=== PATIENT | female | born 1940 | race Caucasian/White ===

== ENCOUNTER → 2017-12-08 | Outpatient (CLI) | payer OTHER | LOC: M.RAD 12:55 | DX: M47.812 Spondylosis without myelopathy or radiculopathy, cervical region (principal) ==

== ENCOUNTER → 2017-12-21 | Outpatient (CLI) | payer OTHER | LOC: M.CT 13:05 | DX: M47.812 Spondylosis without myelopathy or radiculopathy, cervical region (principal); M48.02 Spinal stenosis, cervical region; G43.109 Migraine with aura, not intractable, without status migrainosus ==

== ENCOUNTER → 2018-03-06 | Outpatient (CLI) | payer OTHER | LOC: M.RAD 02-07 13:08 | DX: Z12.31 Encounter for screening mammogram for malignant neoplasm of breast (principal); I25.10 Atherosclerotic heart disease of native coronary artery without angina pectoris; M85.88 Other specified disorders of bone density and structure, other site ==

== ENCOUNTER → 2019-03-06 | Outpatient (CLI) | payer OTHER | LOC: M.RAD 08:20 | DX: Z12.31 Encounter for screening mammogram for malignant neoplasm of breast (principal) ==

== ENCOUNTER → 2020-03-07 | Outpatient (CLI) | payer OTHER | LOC: M.RAD 09:00 | PROVIDERS: ATTEND Internal Medicine | DX: Z12.31 Encounter for screening mammogram for malignant neoplasm of breast (principal) ==

== ENCOUNTER → 2021-03-10 | Outpatient (CLI) | payer OTHER | LOC: M.RAD 09:07 | PROVIDERS: ATTEND Family Medicine | DX: Z12.31 Encounter for screening mammogram for malignant neoplasm of breast (principal) ==

== ENCOUNTER 2021-06-12 13:22 | Emergency (ER) | payer OTHER ==
[~2021-06-12] VITALS: Ht 160 cm; Wt 59.0 kg
[2021-06-12] MEDS ORDERED: NORVASC10 MG PO (13:31)
[2021-06-12] MEDS ORDERED: ONDANSETRON ODT4 MG PO (13:32)
[2021-06-12] MEDS ORDERED: LISINOPRIL20 MG PO (13:32)
[2021-06-12] MEDS ORDERED: CLONIDINE HCL0.1 M1 PO (13:32)
[2021-06-12] MEDS ORDERED: PROMETH-CODEIN 65 ML PO (13:33)
[2021-06-12] MEDS ORDERED: BENZONATATE200 MG PO (13:34)
[2021-06-12 13:59] LABS: ABSOLUTE LYMPHOCYTES 0.5 thou/uL (0.8-5.3); ABSOLUTE MONOCYTES 0.5 thou/uL (0.0-1.2); ABSOLUTE NEUTROPHILS 3.4 thou/uL (1.6-8.1); BASOPHILS 0.4 %; HEMOGLOBIN 14.2 gm/dL (12.0-15.0); LYMPHOCYTES 10.6 %; MCH 29.8 pg (26.0-34.0); MCHC 33.7 g/dL (28.0-37.0); MCV 88.3 fL (80.0-100.0); MONOCYTES 10.5 %; MPV 7.8 fl. (7.2-11.1); NUCLEATED RBCS 0 /100WBC; PLATELET COUNT* 141 thou/uL (150-400); POLYS 78.5 %; RBC 4.76 mil/uL (4.20-5.00); RDW-CV 13.3 % (10.5-14.5); WBC 4.3 thou/uL (4.0-11.0)
[2021-06-12 14:10] LABS: CALCIUM 8.4 mg/dL (8.5-10.1); CREATININE 1.6 mg/dL (0.6-1.3); POTASSIUM 4.1 mmol/L (3.5-5.1)
[2021-06-12 14:19] LABS: MAGNESIUM 1.9 mg/dL (1.8-2.4); TOTAL BILIRUBIN 0.6 mg/dL (<0.1-1.0); TOTAL PROTEIN 6.6 g/dL (6.4-8.2)
--- NOTE | 2021-06-12 14:20 | EKG ---
[place] [address] ELECTROCARDIOGRAM REPORT Name: SHARMILA MEMBRENO Room: [facility]#: [id number] Admission: 06/12/21 Attend Phys: Discharge: Date of : 44 Date of Service: 06/12/21 1326 Report #: [id number] THIS REPORT FOR: //name// [facility] ED Test Date: 2021-06-12 Test Time: 13:26:39 Pat Name: SHARMILA MEMBRENO Department: Room: Gender: F Welding Engineer: : 1940 Requested By: Lucio Morales Order Number: [id number] MD: Srinivasan Dove Measurements Intervals [place] Rate: 87 P: 36 ID: 150 QRS: -29 QRSD: 98 T: 51 QT: 357 QTc: 430 Interpretive Statements Sinus rhythm Inferior infarct, old possible Baseline wander in lead(s) V6 No previous ECG available for comparison Electronically Signed On 06-12-2021 14:19:40 [employer] by Srinivasan Dove [email or web address] <ELECTRONICALLY SIGNED> By: Srinivasan Dove MD, [facility] 06/12/21 1419 1326 1326 Srinivasan Dove MD, [facility] /EPI
[2021-06-12] MEDS ORDERED: ZOFRAN ODT4 MG DISSOLVE (15:20)
[2021-06-12] MEDS ORDERED: VENTOLIN HFA 1818 GM INH (15:20)
[2021-06-12] MEDS ORDERED: DEXAMETHASONE 44 M1 PO (15:20)
[2021-06-12 16:14] VITALS: BP 123/60
== END 2021-06-12 16:16 | disposition home or self-care (01) ==
LOC: M.ERS 13:22
PROVIDERS: Family Medicine
DX: U07.1 COVID-19 (principal); R06.00 Dyspnea, unspecified; Z79.899 Other long term (current) drug therapy; Z88.2 Allergy status to sulfonamides; Z88.5 Allergy status to narcotic agent